=== PATIENT | male | born 1930 | race Caucasian/White ===

== ENCOUNTER 2016-05-03 12:35 | Inpatient (IN) | payer OTHER ==
--- NOTE | 2016-05-03 14:38 | Diag Imaging Result Document ---
PROCEDURE NAME: HEAD/C-SPINE W/O CONTRAST - 05/03/2016 CT OF THE HEAD WITHOUT CONTRAST: FINDINGS: There are calcifications in the vertebral and internal carotid arteries. There is calcification in the globus pallidus bilaterally. There is no evidence of mass effect, bleed, or abnormal extraaxial fluid collection. The visualized paranasal sinuses are clear. There is persistence of the metopic suture. The calvarium appears to be intact. IMPRESSION: No evidence of acute intracranial disease. 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 There is partial fusion of C5 and C6. There is some posterior osteophyte formation at this level. There is no evidence of prevertebral soft tissue swelling. There are degenerative changes in the atlantoaxial joint anteriorly. There are severe hypertropic facet changes at C3-4 and C4-5 on the left. IMPRESSION: Degenerative changes. No evidence of acute bony disease.
[2016-05-03 14:45] LABS: BASO% 1.2 % (0.0-0.8); EOS# 0.07 X1000 (0.0-0.7); EOS% 0.7 % (0.0-10.0); HEMATOCRIT 25.5 % (42.0-52.0); HEMOGLOBIN 8.4 g/dL (14.0-18.0); IMM GRAN# 0.11 X1000 (0.0-0.04); IMM GRAN% 1.2 % (0.0-0.5); LYMPH% 7.4 % (20.5-51.1); MANUAL DIFF NEEDED? YES; MCH 40.6 PG (27-31); MCHC 32.9 g/dL (33-37); MCV 123.2 FL (81-99); MONO# 1.12 X1000 (0.11-0.59); MONO% 11.8 % (1.7-9.3); MPV 11.9 FL (7.4-10.4); NEUT% 77.7 % (42.2-75.2); PLT 453 X1000 (130-400); RBC 2.07 XMIL (4.7-6.1)
--- NOTE | 2016-05-03 14:56 | Diag Imaging Result Document ---
PROCEDURE NAME: THORAX/ABDOMEN/PELVIS - 05/03/2016 CT CHEST ABDOMEN AND PELVIS WITH IV CONTRAST: COMPARISON: CT abdomen and pelvis dated 02/20/2012. No prior CT chest is available for comparison. FINDINGS: CHEST: There are numerous tiny nodules scattered throughout both lungs, most of which are noncalcified. Nonetheless, they statistically most likely represent tiny noncalcified granulomata. For reference, one of the larger nodules is seen in the left lower lobe on image 117 of series 5 measuring approximately 6.1 mm. This is actually stable as compared to a prior abdominal CT in 2011 that includes the lung bases. No airspace consolidations are appreciated. There is right apical parenchymal and pleural scarring. There are no pleural fluid collections and no pneumothorax. There are calcified mediastinal and right hilar lymph node indicating prior granulomatous disease. There is no evidence of significant lymphadenopathy, otherwise. There is no abnormal mediastinal fluid collection identified. There is no evidence of great vessel injury. There are degenerative changes involving the thoracic spine. The bony structures of the thorax are grossly intact. ABDOMEN/PELVIS: There are several low-dense foci arising from the renal cortices bilaterally that are stable, consistent with small cysts, probably containing internal proteinaceous debris. There has been a previous cholecystectomy. 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 The spleen is enlarged, measuring up to 16.7 cm in length. It appears slightly larger than the previous study. There are multiple splenic granulomata. There is no evidence of solid organ injury. There is no free abdominal gas or free fluid appreciated. There are no focal inflammatory changes. There is a small inguinal hernia on the right containing mesenteric fat and a small loop of bowel. However, there is no evidence of bowel obstruction. The remainder of the solid viscera of the abdomen and pelvis and the remainder of the GI tract is essentially unremarkable. The bony structures of the abdomen and pelvis are grossly intact. IMPRESSION: 1. Multiple tiny nodules throughout both lungs that are statistically most compatible with tiny granulomata. 2. Splenomegaly. 3. Other incidental/nonacute findings detailed above, but no evidence of acute pathology involving the chest, abdomen, or pelvis.
[2016-05-03 15:02] LABS: AGAP 7; ALKALINE PHOSPHATASE 153 U/L (32-122); AMYLASE 58 U/L (20-200); BUN 17 mg/dL (8-22); CALCIUM 8.2 mg/dL (8.8-10.2); CHLORIDE 98 mmol/L (98-107); CK PROFILE 54 U/L (24-204); COSMO 269; GOT 17 U/L (10-34); GPT 24 U/L (10-44); POTASSIUM 4.5 mmol/L (3.5-5.1); SODIUM 132 mmol/L (136-145); TCO2 27 mmol/L (25-35); TOTAL PROTEIN 6.9 g/dL (6.3-8.3)
[2016-05-03 15:13] LABS: BANDS 2 % (0-1); BASO 1 % (0-1); EOS 1 % (1-10); LYMPHS 16 % (21-51); MONO 2 % (1-9); POLYCHROM OCCASIONAL
[2016-05-03] MEDS ORDERED: NS 500 ML IV ONE (15:48)
[2016-05-03 16:10] LABS: OCCULT BLOOD 1 NEGATIVE (NEGATIVE)
[2016-05-03] MEDS ORDERED: NS 1,000 ML IV ONE (16:19)
--- NOTE | 2016-05-03 16:22 | PROVIDER DOCUMENTATION ---
HPI-Syncope/Dizziness - General Chief Complaint: Fall Stated Complaint: N/V/D Time Seen by Provider: 05/03/16 14:55 Source: patient, family Allergies/Adverse Reactions: Patient Allergies Allergy/AdvReac Type Severity Reaction Status Date / Time No Known Allergies Allergy Verified 04/30/16 08:57 Home Medications: Home Medication List Medication Instructions Recorded Confirmed Last Taken Type Carvedilol [Coreg] 6.25 mg PO BID 02/24/14 05/03/16 05/03/16 History Lovastatin 20 mg PO DAILY 02/24/14 05/03/16 05/03/16 History Omeprazole 20 mg PO BID 03/04/14 05/03/16 05/03/16 History Docusate Sodium [Colace] 200 mg PO DAILY #0 capsule 03/05/14 05/03/16 05/03/16 Rx Donepezil HCl 5 mg PO DAILY 04/30/16 05/03/16 05/03/16 History Doxycycline Hyclate 100 mg PO BID #20 capsule 04/30/16 05/03/16 05/03/16 Rx Hydrocodone/APAP 7.5 mg/325 mg 1 each PO Q8H PRN PRN #15 tablet 04/30/1605/03/16 Rx [Golf-7.5] Methocarbamol 500 mg PO HS 04/30/16 05/03/16 05/03/16 History Mupirocin Ointment [Bactroban 1 applicatn TOP TID #1 tube 04/30/16 05/03/1605/18 Rx Ointment] Sulfamethoxazole/Trimethoprim 1 each PO BID #20 tablet 04/30/16 05/03/16 Rx [Bactrim Ds Tablet] Metformin [Glucophage] 850 mg PO BID CC 05/03/16 05/03/16 05/03/16 History - History of Present Illness-Syncope/Dizzy Nature of Presenting Problem: 86 year old WM [facility], fixing [facility] when he suddenly felt faint, went to the [facility], vomiting several times and then had a syncopal event. he reports waking upon the floor. he then got up and ambulated out and had his bring him here. he reports he feels weak, tired and a "fuzzy feeling in my head." "I am not thinking right." Prior Episodes: reports: no prior history Onset/Duration: reports: just prior to arrival Timing: reports: improving, gone now Position/Activity at time of episode: reports: standing Symptoms prior to episode: reports: nausea/vomiting Context: reports: lost consciousness, became unresponsive, collapsed, confused after event. denies: incontinent of urine, incontinent of stool Loss of Consciousness: no loss of consciousness Location of injury. (If syncope resulted in an injury.): reports: head Current Symptoms: reports: weakness, lightheaded, lightheaded Review of Systems - Adult - REVIEW OF SYSTEMS - ADULT Constitutional: reports: see HPI, fatique. denies: chills, fever, night sweats , weight gain, weight loss Eyes: reports: no symptoms reported. denies: discharge, blurred vision, double vision, redness Ears, Nose, Mouth & Throat: reports: no symptoms reported. denies: ear discharge, ear pain, nose pain, loose teeth, throat pain, throat swelling Cardiovascular: reports: see HPI, syncope. denies: chest pain, heart murmur, irregular heart rate, orthopnea, palpitations, poor circulation, PND Respiratory: reports: no symptoms reported. denies: chronic cough, cough, shortness of breath, wheezing Gastrointestinal: reports: see HPI, nausea, poor appetite, vomiting. denies: abdominal pain, hematemesis, constipation, diarrhea, difficulty swallowing, frequent heartburn, rectal bleeding Genitourinary: reports: no symptoms reported. denies: discharge, hematuria, urgency Musculoskeletal: reports: no symptoms reported. denies: bone pain, joint pain, joint swelling, neck pain Integumentary: reports: no symptoms reported. denies: hives, itching, rash, skin sores/ulcer Neurological: reports: see HPI, syncope. denies: ataxia, dizziness/vertigo, numbness, paresthesia Psychiatric: reports: no symptoms reported Endocrine: reports: no symptoms reported. denies: cold intolerance, heat intolerance, increased thirst Hematologic/Lymphatic: reports: no symptoms reported. denies: blood clots, prolonged bleeding, transfusions Allergic/Immunologic: reports: no symptoms reported All Other Systems: Reviewed and Negative Past History - Adult - PAST MEDICAL HISTORY-ADULT Review of Records: reports: Old Records Reviewed, Nursing Assessment Review, Medications Reviewed, Social history reviewed & non-contributory. 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) Other Conditions: reports: denies history - PRIOR SURGERIES/PROCEDURES Surgical/Procedure History: reports: recent surgery (colonscopy), cholecystectomy, hernia repair - PRIOR HOSPITALIZATIONS Prior Hospitalizations: reports: for similar symptoms - IMMUNIZATION STATUS Childhood Immunizations: See Nurse Assessment Flu Vaccine: See Nurse Assessment - FAMILY HISTORY Family History: reviewed, not pertinent - SOCIAL HISTORY Smoking: denies Substance Use: none/never Alcohol Use Frequency: never Physical Exam-General - PHYSICAL EXAM-ADULT Initial Vital Signs Reviewed: Yes - CONSTITUTIONAL General Appearance: alert, mild distress. negative: appears well (unsteady on his feet, requiring assistance to walk.), lethargic, slow to respond, obtunded, combative - EYES Eyes: PERRL/EOMI, pink conjunctivae. negative: conjuctival exudate, pale conjunctivae, sclera injected, scleral icterus, subconjunctival hemorrhage - HEAD, EARS, NOSE, MOUTH & THROAT HENMT: moist mucous membranes, normal ENT inspection. negative: normocephalic/ atraumatic (hematoma to left jain), hearing deficit, frontal tenderness, maxillary tenderness - NECK Neck: non-tender, full range of motion, supple, normal inspection. negative: C- spine tenderness, limited range of motion, tender lateral, tender midline - RESPIRATORY Respiratory: chest non-tender, lungs clear, normal breath sounds, no pleuratic chest pain, no respiratory distress, no accessory muscle use. negative: respiratory distress, decreased breath sounds, accessory muscle use, crackles, rales, rhonchi, stridor, wheezing - CARDIOVASCULAR Cardiovascular: normal peripheral pulses, regular rate, rhythm, no edema, no gallop, no murmur - CHEST (BREASTS) Chest/Breast: tenderness (left lateral chest wall, no eccyhomosis, s/s of trauma ) - GASTROINTESTINAL (ABDOMEN) Abdominal Exam: normal bowel sounds, non tender, soft, tenderness (LUQ). negative: distended, guarding, rigid, rebound, McBurney's point tenderness, Trejo's sign, obturator sign, psoas, Rovsing's sign - GENITOURINARY Male Genitalia: deferred Rectal Exam: deferred Hemoccult Exam: deferred - MUSCULOSKELETAL Back Exam: normal inspection, no CVA tenderness, no vertebral tenderness. negative: CVA tenderness, decreased range of motion, swelling, vertebral tenderness Extremity: normal range of motion, non-tender, normal gait, normal inspection, no pedal edema, no calf tenderness, normal capillary refill. negative: deformity, erythema, inflammation Peripheral Pulses: radial (R): 3+, radial (L): 3+, dorsalis-pedis (R): 3+, dorsalis-pedis (L): 3+ - SKIN Integumentary: normal color, ecchymosis (left jain). negative: blanching, cyanosis, diaphoresis - NEUROLOGIC Neurologic: quality eng II-XII nml as tested, grossly normal, no motor/sensory deficits . negative: abnormal cerebellar tests, abnormal quality eng II-XII, abnormal gait, aphasia, EOM palsy, facial droop, focal weakness, motor weakness, sensory deficit - PSYCHIATRIC Psych/Mental Status: normal mood/affect, normal thought content, normal thought process, oriented x 3 Progress - PLAN OF CARE/RESULTS Progress/Plan/Lab Results: Laboratory Tests 05/03/16 05/03/16 05/03/16 14:35 14:35 14:35 WBC 9.50 RBC 2.07 L Hgb 8.4 L Hct 25.5 L MCV 123.2 H MCH 40.6 H MCHC 32.9 L RDW Std Deviation 13.3 Plt Count 453 H MPV 11.9 H Immature Gran % (Auto) 1.2 H Neut % (Auto) 77.7 H Lymph % (Auto) 7.4 L Rice % (Auto) 11.8 H Eos % (Auto) 0.7 Baso % (Auto) 1.2 H Immature Gran # (Auto) 0.11 H Neut # (Auto) 7.39 H Lymph # (Auto) 0.70 L Rice # (Auto) 1.12 H Eos # (Auto) 0.07 Baso # (Auto) 0.11 Segmented Neutrophils 78 H Band Neutrophils 2 H Lymphocytes 16 L Monocytes 2 Eosinophils 1 Basophils 1 Polychromasia OCCASIONAL Anisocytosis OCCASIONAL Sodium 132 L Potassium 4.5 Chloride 98 Carbon Dioxide 27 Anion Gap 7 BUN 17 Creatinine 1.1 Estimated GFR/1.73 m2 > 60 BUN/Creatinine Ratio 15 Glucose 146 H Calculated Osmolality 269 Calcium 8.2 L Total Bilirubin 1.30 H AST 17 ALT 24 Alkaline Phosphatase 153 H Creatine Kinase 54 Troponin T [id number]-[id number] Pept 382 Total Protein 6.9 Albumin 4.0 Globulin 3.0 Albumin/Globulin Ratio 1.0 Amylase 58 Plasma Lactate Stool Occult Blood 05/03/16 05/03/16 05/03/16 14:35 14:35 16:10 WBC RBC Hgb Hct MCV MCH MCHC RDW Std Deviation Plt Count MPV Immature Gran % (Auto) Neut % (Auto) Lymph % (Auto) Rice % (Auto) Eos % (Auto) Baso % (Auto) Immature Gran # (Auto) Neut # (Auto) Lymph # (Auto) Rice # (Auto) Eos # (Auto) Baso # (Auto) Segmented Neutrophils Band Neutrophils Lymphocytes Monocytes Eosinophils Basophils Polychromasia Anisocytosis Sodium Potassium Chloride Carbon Dioxide Anion Gap BUN Creatinine Estimated GFR/1.73 m2 BUN/Creatinine Ratio Glucose Calculated Osmolality Calcium Total Bilirubin AST ALT Alkaline Phosphatase Creatine Kinase Troponin T < 0.010 Dwi-E-Qpakusvirgr Pept Total Protein Albumin Globulin Albumin/Globulin Ratio Amylase Plasma Lactate 1.8 Stool Occult Blood NEGATIVE Orders Category Date Time Status HEAD/C-SPINE W/O CONTRAST [CT] Routine Exams 05/03/16 13:41 Completed THORAX/ABDOMEN/PELVIS [CT] Routine Exams 05/03/16 13:42 Completed AMYLASE [CHEM] Stat Lab 05/03/16 14:35 Completed BLOOD CULTURE [BLDCUL] Routine Lab 05/03/16 14:37 Ordered BLOOD CULTURE [BLDCUL] Routine Lab 05/03/16 14:37 Ordered CBC WITH DIFF [HEME] Stat Lab 05/03/16 14:35 Completed CBC WITH DIFF [HEME] Stat Lab 05/03/16 16:18 Uncollected CK PROFILE [SP CHEM] Stat Lab 05/03/16 14:35 Completed CK PROFILE [SP CHEM] Stat Lab 05/03/16 16:19 Ordered COMPREHENSIVE METABOLIC PANEL [CHEM] Stat Lab 05/03/16 14:35 Completed FERRITIN Stat Lab 05/03/16 16:18 Ordered FOLATE Stat Lab 05/03/16 16:17 Ordered LACTATE, PLASMA [CHEM] Stat Lab 05/03/16 14:35 Completed OCCULT BLOOD SCREEN STOOL PL Stat Lab 05/03/16 16:10 Completed PRO B-NATRIURETIC PEPTIDE Stat Lab 05/03/16 14:35 Completed TIBC [UIBC W TOTAL IRON] [CHEM] Stat Lab 05/03/16 16:18 Ordered TROPONIN T Stat Lab 05/03/16 14:35 Completed TROPONIN T Stat Lab 05/03/16 16:20 Ordered VITAMIN B12 Stat Lab 05/03/16 16:17 Ordered 0.9% Sodium Chloride Inj [Ns] 1,000 ml Med 05/03/16 16:19 Active IV 125 mls/hr 0.9% Sodium Chloride Inj [Ns] 500 ml Med 05/03/16 15:48 Active IV 999 mls/hr Vital Signs - 24 hr 05/03/16 12:54 Temperature 98 F Pulse Rate 71 Respiratory 18 Rate Blood Pressure 124/70 O2 Sat by Pulse 100 Oximetry - CT/MRI 1 CT Study: Abdomen, Cervical Spine, Head, Pelvis, Thorax Impression: Abnormal (see radiology read for extensive nonacute findings.) - CONSULTS/PCP/HOSPITALIST Notification #1 *Consult/PCP/Hospitalist*: Dr. Keller Time Discussed: 16:02 Consult Disposition: Admit Departure - Departure Time of Disposition Order: 16:20 DIAGNOSIS: Nausea & vomiting Qualifiers: Vomiting type: unspecified Vomiting Intractability: non-intractable Qualified Code(s): R11.2 - Nausea with vomiting, unspecified Syncope Qualifiers: Syncope type: unspecified Qualified Code(s): R55 - Syncope and collapse Contusion Qualifiers: Encounter type: initial encounter Contusion area: head Contusion of head detail : orbital tissues Laterality: left Qualified Code(s): S05.12XA - Contusion of eyeball and orbital tissues, left eye, initial encounter Fall Qualifiers: Encounter type: initial encounter Qualified Code(s): W19.XXXA - Unspecified fall, initial encounter Disposition: ADMITTED INPATIENT 09 Certified Medical Emergency: Emergent Condition: Stable Attestation - Physician/ ASHVIN Attestation Patient care was provided by Advanced Practice Provider:: Yes Advanced Practice Provider:: Carol Tom Advanced Practice Provider documentation review:: The Mid-level provider documentation, treatment plan and medical decision making was reviewed by the physician who agrees with all treatment and medical decision making by the MLP.
[2016-05-03 17:09] LABS: IRON SATURATION 38 %; TIBC 204 ug/dL; TOTAL IRON 78 ug/dL (53-167); UNBOUND IRON 126 ug/dL (112-346)
[2016-05-03] MEDS ORDERED: ZOFRAN IV PRN (18:08)
[2016-05-03] MEDS: COREG PO SCH (21:25)
[2016-05-04 05:23] LABS: MANUAL DIFF NEEDED? NO
[2016-05-04 05:45] LABS: BASO% 1.7 % (0.0-0.8); EOS# 0.11 X1000 (0.0-0.7); EOS% 2.1 % (0.0-10.0); HEMOGLOBIN 7.2 g/dL (14.0-18.0); IMM GRAN# 0.05 X1000 (0.0-0.04); IMM GRAN% 0.9 % (0.0-0.5); LYMPH# 0.67 X1000 (1.2-3.4); LYMPH% 12.7 % (20.5-51.1); MCH 38.5 PG (27-31); MCHC 31.3 g/dL (33-37); MONO# 0.79 X1000 (0.11-0.59); MONO% 14.9 % (1.7-9.3); MPV 12.3 FL (7.4-10.4); NEUT% 67.7 % (42.2-75.2); PLT 392 X1000 (130-400); RBC 1.87 XMIL (4.7-6.1)
[2016-05-04 06:05] LABS: AGAP 5; ALBUMIN 3.3 g/dL (3.5-5.0); ALKALINE PHOSPHATASE 125 U/L (32-122); BUN 14 mg/dL (8-22); CALCIUM 7.9 mg/dL (8.8-10.2); CHLORIDE 102 mmol/L (98-107); COSMO 266; GOT 11 U/L (10-34); GPT 19 U/L (10-44); SODIUM 132 mmol/L (136-145); TCO2 25 mmol/L (25-35)
[2016-05-04] MEDS: PRILOSEC PO SCH (06:57)
[2016-05-04] MEDS ORDERED: GLUCOPHAGE PO SCH (08:00)
[2016-05-04] MEDS: COREG PO SCH ×2 (08:31→22:05)
[2016-05-04] MEDS ORDERED: ARICEPT PO SCH (09:00)
[2016-05-04] MEDS ORDERED: COLACE PO SCH (09:00)
[2016-05-04 10:55] LABS: URINE CULTURE PL NEEDED? NO; URINE SOURCE CLEAN CATCH
[2016-05-04 11:10] LABS: BILIRUBIN URINE NEGATIVE (NEGATIVE); BLOOD URINE NEGATIVE (NEGATIVE); CLARITY CLEAR (CLEAR); COLOR YELLOW; GLUCOSE URINE NEGATIVE (NEGATIVE); LEUKOCYTES URINE TRACE (NEGATIVE); NITRITE URINE NEGATIVE (NEGATIVE); PROTEIN URINE TRACE mg/dL (NEGATIVE); SP GRAVITY URINE 1.005; URINE RBC <10 /HPF (<10); UROBILINOGEN URINE NORMAL
[2016-05-04] MEDS ORDERED: MEVACOR PO SCH (17:00)
[2016-05-05] MEDS ORDERED: NS 500 ML IV ONE (02:28)
[2016-05-05] MEDS ORDERED: TYLENOL PO ONE (02:28)
[2016-05-05] MEDS ORDERED: BENADRYL PO ONE (02:28)
[2016-05-05] MEDS: PRILOSEC PO SCH (06:07)
[2016-05-05 07:15] LABS: BASO% 1.6 % (0.0-0.8); EOS# 0.09 X1000 (0.0-0.7); EOS% 2.1 % (0.0-10.0); HEMATOCRIT 26.1 % (42.0-52.0); HEMOGLOBIN 8.6 g/dL (14.0-18.0); IMM GRAN# 0.07 X1000 (0.0-0.04); IMM GRAN% 1.6 % (0.0-0.5); LYMPH# 0.66 X1000 (1.2-3.4); LYMPH% 15.1 % (20.5-51.1); MANUAL DIFF NEEDED? YES; MCH 38.6 PG (27-31); MONO# 0.73 X1000 (0.11-0.59); MONO% 16.7 % (1.7-9.3); MPV 11.6 FL (7.4-10.4); NEUT% 62.9 % (42.2-75.2); PLT 419 X1000 (130-400); RBC 2.23 XMIL (4.7-6.1)
[2016-05-05 07:28] VITALS: BP 130/60
[2016-05-05 07:56] LABS: HYPOCHROM 1+; LYMPHS 16 % (21-51); MONO 12 % (1-9)
[2016-05-05 08:31] LABS: AGAP 6; ALBUMIN 3.5 g/dL (3.5-5.0); ALKALINE PHOSPHATASE 124 U/L (32-122); BUN 13 mg/dL (8-22); CALCIUM 8.2 mg/dL (8.8-10.2); CHLORIDE 104 mmol/L (98-107); COSMO 273; GOT 12 U/L (10-34); GPT 18 U/L (10-44); POTASSIUM 4.2 mmol/L (3.5-5.1); SODIUM 136 mmol/L (136-145); TCO2 26 mmol/L (25-35); TOTAL PROTEIN 6.3 g/dL (6.3-8.3)
--- NOTE | 2016-06-06 21:48 | HISTORY AND PHYSICAL ---
Colby Cardenas is a regular office patient of [facility]. HISTORY OF PRESENT ILLNESS: He has a history of a fall and some subsequent nausea, vomiting, diarrhea associated with the fall. He has no allergies. He presented to the ER complaining of the following. 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 He went to the bathroom, vomited several times and then had a syncopal episode. He reports upon waking up on the floor he then got up and ambulated out. He had his bring him to the emergency room. He reports being weak, tired and a fuzzy feeling in his head, and that he was not thinking right. He denies any loss of consciousness, urine or stool. When he arrived here to the emergency room he was noted to have a temp of 98 degrees, pulse of 71, respiratory rate 18, BP 124/70. PAST MEDICAL HISTORY: He has a history of hypertension for which he is treated. He has a distant history of an ulcer with GI bleeds in the past some requiring transfusions. He has a history of borderline diabetes. He has had previous colonoscopies and endoscopies. He had a previous hernia repair and a cholecystectomy. He is a nondrinker, nonsmoker. He does not use any illegal drugs. REVIEW OF SYSTEMS: General: He denies any chills, fever, night sweats, weight gain or weight loss. Eyes: No discharge, blurred vision, double vision or redness. ENT: Denies any ear pain, nose pain, loose teeth, throat pain and throat swelling. Cardiovascular: Denies any chest pain, heart murmurs, irregular heart rates, PND, orthopnea, palpitations, poor circulation. Respiratory: Denies cold, cough, shortness of breath, or wheezing. Gastrointestinal: Denies any abdominal pain, hematemesis, constipation, diarrhea, difficulty swallowing, frequent heartburn or rectal bleeding. Genitourinary: He denies discharge, hematuria, urgency or hesitation. Musculoskeletal: Denies bone pain, joint pain, joint swelling, neck pain. Skin: Hives, itching, rash, sores were not present. Neurological: He denies ataxia, dizziness, vertigo, numbness, paresthesias. Psychiatric: No psychiatric illness. Endocrine: Denies cold or heat intolerance. Increased thirst, polyuria, polydipsia. Hematologically: He denies clots, prolonged bleeding, transfusions, allergies. Integumentary: Denies asthma, eczema and hay fever. His. PHYSICAL EXAMINATION: GENERAL: On admission, his head was normocephalic. He was alert in mild distress, slightly unsteady on his feet with assistance required to walk. He was a little bit slow to respond, a little obtunded. EYES: His eyes were negative for exudate. They were pale but no icterus. EAR, NOSE, THROAT: Normocephalic. There was a hematoma on his left jehovah's witness. Hearing deficit frontal. There was some frontal tenderness and maxillary tenderness. NECK: Full range of motion, supple, normal. RESPIRATORY: Lungs were clear bilaterally. Normal breath sounds. No pleural effusions. No pleuritic pain. No respiratory distress. No accessory muscle use. CARDIOVASCULAR: He had a regular rhythm and rate. Normal pulses. He had no edema. CHEST: He had some tenderness along his left lateral chest wall. No ecchymoses. No signs of trauma. ABDOMEN: Normal bowel sounds. Nontender. Soft. Some tenderness in left upper quadrant. MUSCULOSKELETAL: Back was normal in appearance. EXTREMITIES: There were no signs of trauma. No edema. Pulses were intact. SKIN: He had the ecchymosis along his left jehovah's witness. NEUROLOGICAL: He was symmetric. Neurological examination was otherwise normal. PSYCHIATRIC: Normal to person, place and thing. DATA: White count was 9500. Hematocrit was 25.5 with an MCV of 123.2. He has a history of B12 deficiency. He had been taking medications [facility] Platelet count 453. His differential was relatively normal. Electrolytes were normal. BUN 17, creatinine 1.1, GFR greater than 60, glucose 146, calcium 8.2, total bilirubin 1.3, AST 17, ALT 24, alkaline phosphatase 153, CK was 54, proBNP 382, albumin protein negative, troponin was negative, plasma lactate was negative, stools for blood were negative. ASSESSMENT AND PLAN: He was admitted for 1. Syncopal episode. 2. History of anemia. 3. B12 deficiency. 4. Gastric ulcers. 5. History of GI bleed. 6. History of hypertension.
== END 2016-05-05 09:35 | disposition home or self-care (01) | DRG 312 ==
LOC: P.ED 12:35 → P.MEDSURG 15:52
PROVIDERS: ADMIT Internal Medicine; ATTEND Internal Medicine
DX: R55 Syncope and collapse (principal); D64.9 Anemia, unspecified; I10 Essential (primary) hypertension; E53.8 Deficiency of other specified B group vitamins; Z79.899 Other long term (current) drug therapy; Z79.84 Long term (current) use of oral hypoglycemic drugs; Z87.11 Personal history of peptic ulcer disease
CPT/HCPCS: 36415; 70450; 71260; 72125; 74177; 80048; 80053; 81001; 82150; 82270; 82550; 82607; 82728; 82746; 82948; 83540; 83550; 83605; 83880; 84484; 85025; 86850; 86900; 86901; 86920; 87040; 87088; 93971; 96360; 96365; J3370; J7030; J7040; P9016; Q9967

== ENCOUNTER 2019-03-12 16:17 | Inpatient (IN) ==
[2019-03-12 17:20] LABS: INR 1.37; PROTIME 17.6 Seconds (11.0-16.0)
[2019-03-12 17:21] LABS: PTT 41.7 Seconds (22.3-41.8)
[2019-03-12 17:26] LABS: BASO# 0.34 X1000 (0.0-0.2); BASO% 1.5 % (0.0-0.8); EOS# 0.22 X1000 (0.0-0.7); HEMATOCRIT 26.7 % (42.0-52.0); HEMOGLOBIN 7.9 g/dL (14.0-18.0); IMM GRAN# 1.23 X1000 (0.0-0.04); IMM GRAN% 5.3 % (0.0-0.5); LYMPH# 1.38 X1000 (1.2-3.4); MCH 38.2 PG (27-31); MCHC 29.6 g/dL (33-37); MONO# 1.84 X1000 (0.11-0.59); MPV 13.1 FL (7.4-10.4); NEUT# 18.12 X1000 (1.4-6.5); NEUT% 78.2 % (42.2-75.2); PLT 410 X1000 (130-400); RBC 2.07 XMIL (4.7-6.1); RDW 16.4 % (11.5-14.5); WBC 23.13 X1000 (4.8-10.8)
[2019-03-12 17:26] LABS: OCCULT BLOOD 1 NEGATIVE (NEGATIVE)
[2019-03-12 17:28] LABS: ALBUMIN 3.9 g/dL (3.5-5.0); BASO 1 % (0-1); CALCIUM 8.8 mg/dL (8.8-10.2); CREATININE 1.2 mg/dL (0.7-1.2); EOS 1 % (1-10); LYMPHS 10 % (21-51); MONO 10 % (1-9); POTASSIUM 4.6 mmol/L (3.5-5.1); SEGS 78 % (42-75); TOTAL BILIRUBIN 0.9 mg/dL (0.20-1.00); TOTAL PROTEIN 6.9 g/dL (6.3-8.3)
[2019-03-12 21:06] LABS: URINE SOURCE CATH
[2019-03-12 21:17] LABS: BILIRUBIN URINE NEGATIVE (NEGATIVE); BLOOD URINE NEGATIVE (NEGATIVE); COLOR YELLOW; GLUCOSE URINE NEGATIVE (NEGATIVE); KETONE URINE NEGATIVE (NEGATIVE); LEUKOCYTES URINE TRACE (NEGATIVE); NITRITE URINE NEGATIVE (NEGATIVE); PH URINE 5.5; PROTEIN URINE TRACE mg/dL (NEGATIVE); SP GRAVITY URINE 1.021; TURBIDITY URINE HAZY (CLEAR); UROBILINOGEN URINE NORMAL (NORMAL)
[2019-03-12 21:19] LABS: UR EPITHELIAL CELLS <10 /HPF (<10); URINE BACTERIA NEGATIVE /HPF; URINE RBC <10 /HPF (<10); URINE WBC <10 /HPF (<10)
[2019-03-13 06:12] LABS: BASO# 0.21 X1000 (0.0-0.2); LYMPH# 1.15 X1000 (1.2-3.4); LYMPH% 5.7 % (20.5-51.1); MCV 122.4 FL (81-99); MONO# 1.41 X1000 (0.11-0.59); MPV 13.1 FL (7.4-10.4); NEUT# 16.29 X1000 (1.4-6.5); NEUT% 81.3 % (42.2-75.2); PLT 314 X1000 (130-400); RBC 2.37 XMIL (4.7-6.1); RDW 20.2 % (11.5-14.5); WBC 20.06 X1000 (4.8-10.8)
[2019-03-13 06:39] LABS: ALB/GLOB RATIO 1.3; ALBUMIN 3.6 g/dL (3.5-5.0); CREATININE 1.3 mg/dL (0.7-1.2); POTASSIUM 4.5 mmol/L (3.5-5.1); TOTAL BILIRUBIN 1.74 mg/dL (0.20-1.00); TOTAL PROTEIN 6.3 g/dL (6.3-8.3)
[2019-03-14 07:10] LABS: BASO# 0.21 X1000 (0.0-0.2); BASO% 1.3 % (0.0-0.8); EOS# 0.23 X1000 (0.0-0.7); EOS% 1.4 % (0.0-10.0); HEMATOCRIT 29.8 % (42.0-52.0); IMM GRAN# 0.39 X1000 (0.0-0.04); IMM GRAN% 2.4 % (0.0-0.5); LYMPH# 0.96 X1000 (1.2-3.4); LYMPH% 5.9 % (20.5-51.1); MCH 37.8 PG (27-31); MCHC 30.2 g/dL (33-37); MCV 125.2 FL (81-99); MONO# 1.19 X1000 (0.11-0.59); MONO% 7.3 % (1.7-9.3); MPV 13.1 FL (7.4-10.4); NEUT# 13.33 X1000 (1.4-6.5); NEUT% 81.7 % (42.2-75.2); PLT 280 X1000 (130-400); RBC 2.38 XMIL (4.7-6.1); WBC 16.31 X1000 (4.8-10.8)
[2019-03-14 07:25] LABS: ALB/GLOB RATIO 1.3; ALBUMIN 3.3 g/dL (3.5-5.0); CALCIUM 8.7 mg/dL (8.8-10.2); CREATININE 1.5 mg/dL (0.7-1.2); POTASSIUM 4.2 mmol/L (3.5-5.1); TOTAL BILIRUBIN 1.26 mg/dL (0.20-1.00); TOTAL PROTEIN 5.8 g/dL (6.3-8.3)
[2019-03-14 08:21] LABS: BASO 1 % (0-1); LYMPHS 7 % (21-51); MONO 10 % (1-9); SEGS 82 % (42-75)
[2019-03-15 08:02] LABS: BASO% 1.4 % (0.0-0.8); EOS# 0.25 X1000 (0.0-0.7); EOS% 1.7 % (0.0-10.0); HEMATOCRIT 30.8 % (42.0-52.0); HEMOGLOBIN 9.1 g/dL (14.0-18.0); IMM GRAN# 0.36 X1000 (0.0-0.04); IMM GRAN% 2.5 % (0.0-0.5); LYMPH# 0.83 X1000 (1.2-3.4); LYMPH% 5.7 % (20.5-51.1); MCH 37.4 PG (27-31); MCHC 29.5 g/dL (33-37); MCV 126.7 FL (81-99); MONO# 1.12 X1000 (0.11-0.59); MONO% 7.7 % (1.7-9.3); NEUT# 11.72 X1000 (1.4-6.5); PLT 226 X1000 (130-400); RBC 2.43 XMIL (4.7-6.1); RDW 20.9 % (11.5-14.5); WBC 14.48 X1000 (4.8-10.8)
[2019-03-15 08:21] LABS: ALB/GLOB RATIO 1.3; ALBUMIN 3.2 g/dL (3.5-5.0); CALCIUM 8.6 mg/dL (8.8-10.2); CREATININE 1.3 mg/dL (0.7-1.2); POTASSIUM 4.2 mmol/L (3.5-5.1); TOTAL BILIRUBIN 1.01 mg/dL (0.20-1.00); TOTAL PROTEIN 5.7 g/dL (6.3-8.3)
[2019-03-16 07:35] LABS: ALB/GLOB RATIO 1.2; ALBUMIN 3.6 g/dL (3.5-5.0); BASO# 0.36 X1000 (0.0-0.2); BASO% 2.2 % (0.0-0.8); CALCIUM 8.5 mg/dL (8.8-10.2); CREATININE 1.2 mg/dL (0.7-1.2); HEMOGLOBIN 11.2 g/dL (14.0-18.0); MCH 38.8 PG (27-31); MCHC 30.3 g/dL (33-37); PLT 306 X1000 (130-400); POTASSIUM 4.1 mmol/L (3.5-5.1); RBC 2.89 XMIL (4.7-6.1); RDW 20.1 % (11.5-14.5); TOTAL BILIRUBIN 1.32 mg/dL (0.20-1.00); TOTAL PROTEIN 6.5 g/dL (6.3-8.3); WBC 16.56 X1000 (4.8-10.8)
[2019-03-16 08:04] LABS: BANDS 4 % (0-1); EOS 1 % (1-10); LYMPHS 8 % (21-51); MONO 8 % (1-9); SEGS 78 % (42-75)
[2019-03-17 08:31] LABS: BASO# 0.25 X1000 (0.0-0.2); EOS# 0.23 X1000 (0.0-0.7); EOS% 1.9 % (0.0-10.0); HEMATOCRIT 33.9 % (42.0-52.0); HEMOGLOBIN 10.3 g/dL (14.0-18.0); IMM GRAN# 0.19 X1000 (0.0-0.04); IMM GRAN% 1.5 % (0.0-0.5); LYMPH# 1.05 X1000 (1.2-3.4); LYMPH% 8.5 % (20.5-51.1); MCH 38.7 PG (27-31); MCHC 30.4 g/dL (33-37); MCV 127.4 FL (81-99); MONO# 0.99 X1000 (0.11-0.59); NEUT# 9.59 X1000 (1.4-6.5); NEUT% 78.1 % (42.2-75.2); PLT 335 X1000 (130-400); RBC 2.66 XMIL (4.7-6.1); RDW 19.9 % (11.5-14.5)
[2019-03-17 08:56] LABS: AGAP 14; ALB/GLOB RATIO 1.3; ALBUMIN 3.4 g/dL (3.5-5.0); ALKALINE PHOSPHATASE 91 U/L (32-122); BUN 14 mg/dL (8-22); CALCIUM 8.6 mg/dL (8.8-10.2); CHLORIDE 95 mmol/L (98-107); COSMO 275; CREATININE 1.1 mg/dL (0.7-1.2); ESTIMATED GFR > 60; GLUCOSE 119 mg/dL (70-104); GOT 9 U/L (10-34); GPT 10 U/L (10-44); SODIUM 137 mmol/L (136-145); TCO2 28 mmol/L (25-35); TOTAL BILIRUBIN 1.35 mg/dL (0.20-1.00); TOTAL PROTEIN 6.1 g/dL (6.3-8.3)
[2019-03-17 09:04] LABS: BANDS 4 % (0-1); LARGE PLATELETS 2+; LYMPHS 6 % (21-51); MONO 8 % (1-9); SEGS 82 % (42-75)
[2019-03-17 16:07] VITALS: BP 95/46
== END 2019-03-17 17:59 | disposition hospice, home (50) | DRG 280 ==
LOC: P.ED 16:17 → 2N 23:40 → SUATTDRO 23:40 → 3N 03-14 15:24
PROVIDERS: ATTEND Internal Medicine